=== PATIENT | male | born 1980 | race Caucasian/White ===

== ENCOUNTER 2018-01-16 16:57 | Emergency (ER) | payer MEDICAID ==
[~2018-01-16] VITALS: Ht 167.6 cm; Wt 85.7 kg
[2018-01-16 17:08] VITALS: BP 125/92
--- NOTE | 2018-01-16 17:12 | NUR ---
Patient ambulated to bed 6 with family. RN evaluating patient at bedside.
--- NOTE | 2018-01-16 17:13 | NUR ---
c/o left ear pain, sore throat, dizziness x 2 weeks. also c/o intermittent chest pressure, non radiating. med hx: none rx: none
--- NOTE | 2018-01-16 19:13 | NUR ---
Report given to [facility] Hopkins for continuation of care
[2018-01-16] MEDS ORDERED: KETOROLAC 60 MG/2 ML VIAL IM ONE (19:55)
[2018-01-16 20:34] VITALS: BP 125/92
--- NOTE | 2018-01-16 20:34 | NUR ---
Patient discharged with v/s stable. Written and verbal after care instructions given and explained. Patient alert, oriented and verbalized understanding of instructions. Ambulatory with steady gait. All questions addressed prior to discharge. ID band removed. Patient advised to follow up with PMD. Rx of Motrin, Prednisone, and [place] given. Patient educated on indication of medication including possible reaction and side effects. Opportunity to ask questions provided and answered.
== END 2018-01-16 20:34 | disposition home or self-care (01) ==
LOC: MED 16:57
DX: H66.92 Otitis media, unspecified, left ear (principal); J02.9 Acute pharyngitis, unspecified
CPT/HCPCS: 96372; 99283; J1885

== ENCOUNTER 2022-04-13 02:05 | Emergency (ER) | payer MEDICAID ==
[~2022-04-13] VITALS: Ht 167.6 cm; Wt 86.2 kg
[2022-04-13 02:27] VITALS: BP 174/128
--- NOTE | 2022-04-13 02:56 | NUR ---
Dr. Cloud examining patient.
[2022-04-13 03:44] LABS: BASOPHILS % (AUTO) 0.4 % (0.0-2.0); EOSINOPHILS # (AUTO) 0.1 K/uL (0-0.4); EOSINOPHILS % (AUTO) 0.8 % (0.0-4.0); HEMATOCRIT 46.2 % (36-52); HEMOGLOBIN 15.4 g/dL (12.0-18.0); LYMPHOCYTES # (AUTO) 0.8 K/uL (2.0-11.5); LYMPHOCYTES % (AUTO) 9.5 % (20.5-51.1); MEAN CORPUSCULAR HEMOGLOBIN 28 pg (27-31); MEAN CORPUSCULAR HGB CONC 33 g/dL (33-37); MEAN CORPUSCULAR VOLUME 84.5 fL (80-94); MONOCYTES % (AUTO) 12.2 % (1.7-9.3); NEUTROPHILS # (AUTO) 6.1 K/uL (1.8-7.7); NEUTROPHILS % (AUTO) 77.1 % (42.2-75.2); PLATELET COUNT (AUTO) 249 K/uL (140-450); RED BLOOD CELL COUNT(AUTO) 5.47 MIL/uL (4.20-6.10); RED CELL DISTRIBUTION WIDTH 13.9 % (11.6-13.7); WHITE BLOOD COUNT (AUTO) 7.9 K/uL (4.8-10.8)
--- NOTE | 2022-04-13 03:54 | NUR ---
COVID-19 and flu swabs collected and sent to lab.
[2022-04-13 05:26] LABS: ALBUMIN 4.1 g/dL (3.4-5.0); ANION GAP 14.9 (8-16); ASPARTATE AMINOTRANSFERASE 28 U/L (15-37); CARBON DIOXIDE 27.6 mmol/L (21-32); CHLORIDE 105 mmol/L (98-107); GFR ARICAN-AMERICAN 104 mL/min (>90); GLUCOSE 106 mg/dL (74-106); POTASSIUM 3.5 mmol/L (3.5-5.1); SODIUM SERUM 144 mmol/L (136-145); TOTAL BILIRUBIN 0.4 mg/dL (0.0-1.0); UREA NITROGEN, BLOOD 10 mg/dL (7-18)
--- NOTE | 2022-04-13 06:44 | NUR ---
Dr. Juarez explained results and treatment plans.
[2022-04-13] MEDS ORDERED: KETOROLAC 30 MG/ML VIAL IM ONE (06:50)
[2022-04-13] MEDS ORDERED: NAPR-54 PO (06:52)
[2022-04-13] MEDS ORDERED: ACET-8386 PO (06:52)
--- NOTE | 2022-04-13 07:30 | NUR ---
bp 153/125, dr puckett made aware, stated that vitals are fine to be discharged
--- NOTE | 2022-04-13 07:30 | NUR ---
Patient discharged with v/s stable. Written and verbal after care instructions about covid 19 given and explained. Patient alert, oriented and verbalized understanding of instructions. Ambulatory with steady gait. All questions addressed prior to discharge. ID band removed. Patient advised to follow up with PMD. Rx of norco5-325, naproxen given. Patient educated on indication of medication including possible reaction and side effects. Opportunity to ask questions provided and answered.
[2022-04-13 07:31] VITALS: BP 153/125
== END 2022-04-13 07:30 | disposition home or self-care (01) ==
LOC: MED 02:05
DX: U07.1 COVID-19 (principal)
CPT/HCPCS: 36415; 71045; 80053; 84484; 85025; 87426; 87804; 93005; 96372; 99285; J1885